=== PATIENT | female | born 1985 | race Caucasian/White ===

== ENCOUNTER 2020-08-02 11:04 | Day surgery (SDC) | payer OTHER ==
[~2020-08-02] VITALS: Ht 165.1 cm; Wt 71.0 kg
[2020-08-02] MEDS ORDERED: Lysine500 MG PO (11:37)
[2020-08-02] MEDS ORDERED: Vitamin D2000 UNIT PO (11:37)
[2020-08-02] MEDS ORDERED: PROBIOTIC1 EA13 PO (11:38)
[2020-08-02] MEDS ORDERED: ACET500 PO (11:38)
--- NOTE | 2020-08-02 11:55 | NUR ---
DR ALVA HERE TO DISCUSS PROCEDURE WITH PT, ALL QUESTIONS ANSWERED.
--- NOTE | 2020-08-02 12:15 | NUR ---
TIMEOUT PERFORMED PT TILTED TO 70 DEGREES. PT REPORTS FEELING LIGHTHEADED, BUT UNCHANGED FROM BEFORE TILTING. SEE EHR FOR PROCEDURE VS.
--- NOTE | 2020-08-02 12:20 | NUR ---
PT REPORTS FEELING UNCHANGED.
--- NOTE | 2020-08-02 12:30 | NUR ---
PT REPORTS STARTING TO HAVE HEADACHE, BUT OTHERWISE UNCHANGED.
--- NOTE | 2020-08-02 12:38 | NUR ---
PT REPORTS WORSENING HEADACHE, BUT LIGHTHEADINESS UNCHANGED.
--- NOTE | 2020-08-02 12:47 | NUR ---
TILT TABLE TEST COMPLETE AT 1245. PT WAS RETURNED SUPINE, LIGHTHEADINESS REMAINS UNCHANGED.
--- NOTE | 2020-08-02 13:05 | NUR ---
PT DRESSED SELF WITHOUT ISSUE, IV REMOVED-CANNULA INTACT. PT RECEIVED DISCHARGE INSTRUCTIONS, MED LIST AND AFTER CARE INSTRUCTIONS; VERBALIZED GOOD UNDERSTANDING. PT LEFT FACILITY VIA AMB, CONDITION STABLE.
== END 2020-08-02 23:56 | disposition home or self-care (01) ==
LOC: MHTC 11:04 → ORSCMMR 11:17 → MHTC 11:17
DX: R56.9 Unspecified convulsions (principal); R55 Syncope and collapse; F17.210 Nicotine dependence, cigarettes, uncomplicated; Z88.8 Allergy status to other drugs, medicaments and biological substances
CPT/HCPCS: 93660; J7030